=== PATIENT | male | born 1970 | race American Indian/Alaskan Native ===

== ENCOUNTER 2021-12-22 18:45 | Emergency (ER) | payer OTHER ==
[2021-12-22] MEDS ORDERED: DEXAMETHASONE 4 MG TAB PO ONE (19:33)
[2021-12-22] MEDS ORDERED: BUTALB/ACETAMINOPHEN/CAFFEINE TAB PO ONE (19:33)
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
[2021-12-22 21:39] VITALS: BP 145/87
== END 2021-12-22 21:38 | disposition home or self-care (01) ==
LOC: ED 18:45
DX: M25.522 Pain in left elbow (principal); R51.9 Headache, unspecified; V89.2XXA Person injured in unspecified motor-vehicle accident, traffic, initial encounter; Y93.89 Activity, other specified; Y92.89 Other specified places as the place of occurrence of the external cause; Y99.8 Other external cause status
CPT/HCPCS: 70450; 73080; 99284; J8540